=== PATIENT | female | born 1975 | race Caucasian/White ===

== ENCOUNTER 2017-03-08 09:52 | Emergency (ER) | payer OTHER ==
[2017-03-08 09:58] VITALS: BP 147/70; PULSE 97; RESP 20; TEMP 98.3
--- NOTE | 2017-03-08 10:18 | ED ---
Recheck HPI - General Chief Complaint: Recheck/Abnormal Lab/Rx Stated Complaint: back and hip pain Time Seen by Provider: 03/08/17 10:03 Source: patient, RN notes reviewed Mode of arrival: ambulatory Limitations: no limitations - History of Present Illness Initial Comments: 41-year-old female presents emergency Department with chief complaint of chronic pain. Patient states that she has a condition similar to MS. Patient states that she is was an appointment with her neurologist Dr. Chang today though it was canceled. Patient states that she currently takes tramadol. Patient denies any new injuries or traumas but states that she just out of her [place]. - Related Data Home Medications Medication Instructions Recorded Confirmed Amitriptyline HCl [Elavil] 50 mg PO HS 03/19/16 04/15/16 Aspirin 325 mg PO DAILY 03/19/16 04/15/16 Betaserum 1 injection SQ WE 03/19/16 04/15/16 HYDROcodone/APAP 7.5-325MG [[place] 1 tab PO Q4H PRN 03/19/16 04/15/16 7.5-325] Topiramate [Topamax] 50 mg PO BID 03/19/16 04/15/16 buPROPion [Wellbutrin] 100 mg PO TID 03/19/16 04/15/16 Previous Rx's Medication Instructions Recorded traMADol HCL [Ultram] 50 mg PO Q4HR PRN #20 tab 03/19/16 HYDROcodone/APAP 7.5-325MG [[place] 1 tab PO Q6HR PRN #20 tab 04/15/16 7.5-325] HYDROcodone/APAP 7.5-325MG [[place] 1 tab PO Q6HR PRN #10 tab 03/08/17 7.5-325] Allergies Allergy/AdvReac Type Severity Reaction Status Date / Time No Known Allergies Allergy Verified 03/08/17 10:15 Review of Systems ROS Statement: Those systems with pertinent positive or pertinent negative responses have been documented in the HPI. ROS Other: All systems not noted in ROS Statement are negative. Past Medical History Additional Past Medical History / Comment(s): MS, back pain History of Any Multi-Drug Resistant Organisms: None Reported Past Surgical History: Cholecystectomy, Orthopedic Surgery Past Psychological History: Depression Smoking Status: Current every day smoker Past Alcohol Use History: None Reported Past Drug Use History: None Reported General Exam Limitations: no limitations General appearance: alert, in no apparent distress Head exam: Present: atraumatic, normocephalic, normal inspection Respiratory exam: Present: normal lung sounds bilaterally. Absent: respiratory distress, wheezes, rales, rhonchi, stridor Cardiovascular Exam: Present: regular rate, normal rhythm, normal heart sounds. Absent: systolic murmur, diastolic murmur, rubs, gallop, clicks Back exam: Present: full ROM, tenderness Neurological exam: Present: alert, oriented X3, CN II-XII intact Course Vital Signs 03/08/17 09:56 Temperature 98.3 F Pulse Rate 97 Respiratory 20 Rate Blood Pressure 147/70 O2 Sat by Pulse 100 Oximetry Medical Decision Making - Medical Decision Making 41-year-old female presented emergency department for [place] prescription. Patient has neurological condition. I did discuss the case with her neurologist Dr. Jordan who does okay a prescription of 1-2 [place] a day for 5 days. She is to follow-up with him within the next week. He does state that she may be in the hospital periodically for breakthrough pain and which she okays. He did state that she's he does not want her to have a large prescription as she also has depression. Disposition Clinical Impression: Chronic pain, Encounter for medication refill Disposition: HOME SELF-CARE Condition: Stable Instructions: Chronic Pain (ED) Additional Instructions: Please return to the Emergency Department if symptoms worsen or any other concerns. Prescriptions: HYDROcodone/APAP 7.5-325MG [[place] 7.5-325] 1 tab PO Q6HR PRN #10 tab PRN Reason: Pain Time of Disposition: 10:18
== END 2017-03-08 10:22 | disposition home or self-care (01) ==
LOC: EC 09:52
DX: G89.29 Other chronic pain (principal); M25.559 Pain in unspecified hip; M54.9 Dorsalgia, unspecified; F32.9 Major depressive disorder, single episode, unspecified; F17.200 Nicotine dependence, unspecified, uncomplicated; Z76.0 Encounter for issue of repeat prescription; Z79.82 Long term (current) use of aspirin; Z79.899 Other long term (current) drug therapy
CPT/HCPCS: 99283

== ENCOUNTER 2017-07-06 16:16 | Emergency (ER) | payer OTHER ==
[2017-07-06 16:29] VITALS: BP 147/89; RESP 20; TEMP 98
[2017-07-06] MEDS ORDERED: HYDROmorphone 1 MG/ML 1 ML SYRINGE IM STA (16:33)
[2017-07-06] MEDS ORDERED: KETOROLAC 60 MG/2 ML VIAL IM STA (16:33)
--- NOTE | 2017-07-06 16:39 | ED ---
Back Pain [facility] - General Chief Complaint: Back Pain/Injury Stated Complaint: Fall-back pain Time Seen by Provider: 07/06/17 16:29 Source: patient Limitations: no limitations - History of Present Illness Initial Comments: 41-year-old female patient presented to emergency department today for evaluation of low back and right hip pain. Patient states that she slipped and fell when getting out of the shower yesterday, states that she landed on her right side. Patient states that she has had increased low back pain and hip pain since then. Patient states she is able to ambulate, patient states that she is able to lie on her sides however she does have increased pain to her hips and low back when she does this. Patient denies hitting her head or losing consciousness with the fall. Patient states that the pain is in her central low back. Patient states that she has had chronic back and hip pain however the pain is much worse after the fall. She states she does take Ultram and ibuprofen at home for pain control, however is not helping for this pain. She denies any radiation of the pain down her legs. Patient denies any numbness or tingling to her legs. Denies a loss of bowel or bladder control. Denies any saddle anesthesia. Patient denies any headache, neck pain, chest pain , shortness of breath, dizziness, weakness, abdominal pain, nausea, vomiting, or difficulties with bowel movements or urination. - Related Data Home Medications Medication Instructions Recorded Confirmed Amitriptyline HCl [Elavil] 50 mg PO HS 03/19/16 04/15/16 Aspirin 325 mg PO DAILY 03/19/16 04/15/16 Betaserum 1 injection SQ WE 03/19/16 04/15/16 HYDROcodone/APAP 7.5-325MG [[place] 1 tab PO Q4H PRN 03/19/16 04/15/16 7.5-325] Topiramate [Topamax] 50 mg PO BID 03/19/16 04/15/16 buPROPion [Wellbutrin] 100 mg PO TID 03/19/16 04/15/16 Previous Rx's Medication Instructions Recorded traMADol HCL [Ultram] 50 mg PO Q4HR PRN #20 tab 03/19/16 HYDROcodone/APAP 7.5-325MG [[place] 1 tab PO Q6HR PRN #20 tab 04/15/16 7.5-325] HYDROcodone/APAP 7.5-325MG [[place] 1 tab PO Q6HR PRN #10 tab 03/08/17 7.5-325] Cyclobenzaprine [Flexeril] 10 mg PO TID #15 tab 07/06/17 Hydrocodone/Acetaminophen [[place] 1 tab PO Q6HR PRN #15 tab 07/06/17 5-325] Allergies Allergy/AdvReac Type Severity Reaction Status Date / Time No Known Allergies Allergy Verified 07/06/17 16:29 Review of Systems ROS Statement: Those systems with pertinent positive or pertinent negative responses have been documented in the HPI. ROS Other: All systems not noted in ROS Statement are negative. Past Medical History Additional Past Medical History / Comment(s): MS, back pain History of Any Multi-Drug Resistant Organisms: None Reported Past Surgical History: Cholecystectomy, Orthopedic Surgery Past Psychological History: Depression Smoking Status: Current every day smoker Past Alcohol Use History: None Reported Past Drug Use History: None Reported General Exam Limitations: no limitations General appearance: alert, in no apparent distress Eye exam: Present: normal appearance, PERRL, EOMI. Absent: scleral icterus, conjunctival injection, periorbital swelling ENT exam: Present: normal exam, mucous membranes moist Neck exam: Present: normal inspection, full ROM, other (Nontender, no step-off, no deformity to firm midline palpation of the posterior cervical spine. Full range of motion without pain or limitation.). Absent: tenderness, meningismus, lymphadenopathy Respiratory exam: Present: normal lung sounds bilaterally. Absent: respiratory distress, wheezes, rales, rhonchi, stridor Cardiovascular Exam: Present: regular rate, normal rhythm, normal heart sounds. Absent: systolic murmur, diastolic murmur, rubs, gallop, clicks GI/Abdominal exam: Present: soft, normal bowel sounds. Absent: distended, tenderness, guarding, rebound, rigid Extremities exam: Present: normal inspection, full ROM, normal capillary refill , other. Absent: tenderness, pedal edema, joint swelling, calf tenderness Back exam: Present: normal inspection, full ROM, other (No flank ecchymosis. No vertebral tenderness noted. No paraspinal tenderness. No evidence of ecchymosis or skin discoloration to the low back.). Absent: tenderness, CVA tenderness (R), CVA tenderness (L), paraspinal tenderness, vertebral tenderness Neurological exam: Present: alert, oriented X3, CN II-XII intact Psychiatric exam: Present: normal affect, normal mood Skin exam: Present: warm, dry, intact, normal color. Absent: rash Course Vital Signs 07/06/17 16:26 Temperature 98.0 F Pulse Rate 109 H Respiratory 20 Rate Blood Pressure 147/89 O2 Sat by Pulse 99 Oximetry Medical Decision Making - Medical Decision Making 41-year-old female patient presented to emergency department today for evaluation of acute low back pain and right hip pain. Patient states was of a fall yesterday caused worsening of her chronic low back and hip pain. The patient does take tramadol at home. Patient will be given a stronger pain medication for this acute exacerbation, as well as a muscle relaxer. Patient will be discharged and instructed to follow-up with her primary care physician for recheck in 1-2 days. Instructed to return here immediately for any new, worsening, or concerning symptoms. Patient verbalized understanding and agreed with this plan. - Radiology Data Radiology results: report reviewed, image reviewed X-ray of the right hip and AP pelvis shows a pelvic ring is intact. Proximal right femur and hip joints appear intact. There is no sign of hip dysplasia. Sacroiliac joints appear normal. Impression by Dr. Escobedo shows negative pelvis and right hip exam. 5 views of the lumbar spine shows lumbar vertebra have normal. Disc spaces are normal. Posterior elements are intact. Sacroiliac joints appear normal. Impression by Dr. Escobedo shows normal lumbar spine. Disposition Clinical Impression: Acute exacerbation of chronic low back pain, Right hip pain Disposition: HOME SELF-CARE Condition: Good Instructions: Acute Low Back Pain (ED), Hip Pain (ED) Additional Instructions: Rest, apply ice to painful areas. Take pain medications as directed. Follow up with her primary care physician for recheck in 1-2 days. Return immediately for any new, worsening, or concerning symptoms. Prescriptions: Cyclobenzaprine [Flexeril] 10 mg PO TID #15 tab Hydrocodone/Acetaminophen [[place] 5-325] 1 tab PO Q6HR PRN #15 tab PRN Reason: Pain Referrals: None,Stated [Primary Care Provider] - 1-2 days Time of Disposition: 17:20
--- NOTE | 2017-07-06 17:12 | XR ---
EXAMINATION TYPE: XR Hip RT and AP Pelvis DATE OF EXAM: 07/06/2017 COMPARISON: NONE HISTORY: Right hip pain TECHNIQUE: A single AP view of the pelvis is obtained. Two views of the right hip are obtained. FINDINGS: The pelvic ring is intact. Proximal right femur and hip joint appear intact. There is no s ign of hip dysplasia. Sacroiliac joints appear normal. IMPRESSION: Negative pelvis and right hip exam.
--- NOTE | 2017-07-06 17:13 | XR ---
EXAMINATION TYPE: XR lumbosacral spine min 4V DATE OF EXAM: 07/06/2017 COMPARISON: NONE HISTORY: Low back pain TECHNIQUE: 5 views FINDINGS: Lumbar vertebra have normal alignment. Disc spaces are normal. Posterior elements are intac t. Sacroiliac joints appear normal. IMPRESSION: Normal lumbar spine.
[2017-07-06 17:43] VITALS: PULSE 82
== END 2017-07-06 17:25 | disposition home or self-care (01) ==
LOC: EC 16:16
DX: M54.5 Low back pain (principal); M25.551 Pain in right hip; G89.29 Other chronic pain; F32.9 Major depressive disorder, single episode, unspecified; F17.200 Nicotine dependence, unspecified, uncomplicated; Z79.82 Long term (current) use of aspirin; Z79.899 Other long term (current) drug therapy; W01.0XXA Fall on same level from slipping, tripping and stumbling without subsequent striking against object, initial encounter
CPT/HCPCS: 72110; 73502; 99283; 96372 ×2; J1885; J1170

== ENCOUNTER 2017-07-25 16:38 | Emergency (ER) | payer OTHER ==
[2017-07-25 16:59] VITALS: BP 133/71; PULSE 80; RESP 20; TEMP 98.3
[2017-07-25] MEDS ORDERED: ORPHENADRINE 30 MG/ML 2 ML VIAL IM STA (17:28)
[2017-07-25] MEDS ORDERED: KETOROLAC 60 MG/2 ML VIAL IM STA (17:28)
--- NOTE | 2017-07-25 17:28 | ED ---
Back Pain HPI - General Chief Complaint: Back Pain/Injury Stated Complaint: Back Pain Time Seen by Provider: 07/25/17 17:14 Source: patient Limitations: no limitations - History of Present Illness Initial Comments: 41-year-old female patient presented to emergency department today for evaluation of lower back pain and right hip pain. Patient states his pain is chronic for her. She states that she has been out of her Ultram for at least one week. States that her pain is worsening due to this. She states that the pain hasn't changed, symptoms are consistent with her usual pain. She denies any radiation of the pain down her legs. Denies any numbness or tingling. She denies any saddle anesthesia. Denies any loss of bowel or bladder control. She denies any recent injury causing the pain. States that she does have an appointment with her primary care doctor next week. She states when she called his office asking for a refill on her pain medication he asked her if she could wait until her appointment. She states that she thought she could wait however she cannot. He told her to present to the emergency department her pain is too bad. Patient denies any recent fever, chills, shortness breath, chest pain, abdominal pain, nausea, vomiting, diarrhea, constipation, back pain, numbness, tingling, headache, visual changes, hematuria, dysuria, urinary frequency, urinary urgency, or any other complaints. - Related Data Home Medications Medication Instructions Recorded Confirmed Amitriptyline HCl [Elavil] 50 mg PO HS 03/19/16 07/25/17 Aspirin 325 mg PO DAILY 03/19/16 07/25/17 Topiramate [Topamax] 50 mg PO BID 03/19/16 07/25/17 buPROPion [Wellbutrin] 100 mg PO TID 03/19/16 07/25/17 Previous Rx's Medication Instructions Recorded traMADol HCL [Ultram] 50 mg PO Q4HR PRN #20 tab 03/19/16 Allergies Allergy/AdvReac Type Severity Reaction Status Date / Time No Known Allergies Allergy Verified 07/25/17 16:59 Review of Systems ROS Statement: Those systems with pertinent positive or pertinent negative responses have been documented in the HPI. ROS Other: All systems not noted in ROS Statement are negative. Past Medical History Additional Past Medical History / Comment(s): MS, back pain History of Any Multi-Drug Resistant Organisms: None Reported Past Surgical History: Cholecystectomy, Orthopedic Surgery Past Psychological History: Depression Smoking Status: Current every day smoker Past Alcohol Use History: Occasional Past Drug Use History: None Reported General Exam Limitations: no limitations General appearance: alert, in no apparent distress Neck exam: Present: normal inspection. Absent: tenderness, meningismus, lymphadenopathy Respiratory exam: Present: normal lung sounds bilaterally. Absent: respiratory distress, wheezes, rales, rhonchi, stridor Cardiovascular Exam: Present: regular rate, normal rhythm, normal heart sounds. Absent: systolic murmur, diastolic murmur, rubs, gallop, clicks GI/Abdominal exam: Present: soft, normal bowel sounds. Absent: distended, tenderness, guarding, rebound, rigid Extremities exam: Present: normal inspection, full ROM, normal capillary refill , other (Lower extremity strength 5/5. Skin pink, warm, and dry. Cap refill is less than 3 seconds.). Absent: tenderness, pedal edema, joint swelling, calf tenderness Back exam: Present: normal inspection, other (No rash, evidence of infection.). Absent: tenderness Neurological exam: Present: alert, oriented X3, CN II-XII intact Psychiatric exam: Present: normal affect, normal mood Skin exam: Present: warm, dry, intact, normal color. Absent: rash Course Vital Signs 07/25/17 16:57 Temperature 98.3 F Pulse Rate 80 Respiratory 20 Rate Blood Pressure 133/71 O2 Sat by Pulse 98 Oximetry Medical Decision Making - Medical Decision Making 41-year-old female patient presented to emergency department today for evaluation of chronic lower back and right hip pain. Patient states that she is out of her Ultram prescription and her pain is worsening due to this. Physical exam is unremarkable. Neurologic and neurovascular status is intact. Patient was informed that we will be unable to fill her pain medication for her here. She will be given an injection of Toradol and Norflex for acute pain control. She is instructed to follow-up with an parking enforcement specialist for further evaluation of her lower back pain. She is instructed to follow up with her primary care physician for any further prescriptions. She is instructed to return here immediately for any new, worsening, or concerning symptoms. She verbalizes understanding and agrees to this plan. Disposition Clinical Impression: Chronic low back pain, Chronic hip pain Disposition: HOME SELF-CARE Condition: Good Instructions: Chronic Back Pain (ED) Additional Instructions: Follow-up with primary care physician for any further pain medication prescriptions. Follow-up with parking enforcement specialist for further evaluation of a low back pain. They are to Tylenol for pain control. Return here immediately for any new, worsening, or concerning symptoms. Referrals: None,Stated [Primary Care Provider] - 1-2 days Eliecer Talley DO [Doctor of Osteopathic Medicine] - 1-2 days Time of Disposition: 17:28
== END 2017-07-25 18:05 | disposition home or self-care (01) ==
LOC: EC 16:38
DX: G89.29 Other chronic pain (principal); M54.5 Low back pain; M25.551 Pain in right hip; F32.9 Major depressive disorder, single episode, unspecified; F17.200 Nicotine dependence, unspecified, uncomplicated; Z79.82 Long term (current) use of aspirin; Z79.899 Other long term (current) drug therapy
CPT/HCPCS: 99283; 96372 ×2; J2360; J1885

== ENCOUNTER 2018-03-21 13:53 | Emergency (ER) | payer OTHER ==
[2018-03-21 14:08] VITALS: BP 170/80; PULSE 96; RESP 18; TEMP 96.9
--- NOTE | 2018-03-21 15:06 | XR ---
EXAMINATION TYPE: XR wrist complete LT DATE OF EXAM: 03/21/2018 COMPARISON: NONE HISTORY: 42-year-old female pain after fall 2 days ago TECHNIQUE: 4 views FINDINGS: Radiocarpal and distal radioulnar joints as well as the midcarpal compartment appear intact. No acute fracture, subluxation, or dislocation seen. IMPRESSION: No acute osseous abnormality seen.
--- NOTE | 2018-03-21 15:08 | XR ---
Left foot and left ankle HISTORY: Trauma 2 days prior, pain 3 views of the left foot, 3 views of the left ankle are submitted. Bone mineralization, joint spaces and alignment are maintained. There is a plantar heel spur. Mild de generative changes are present. There is soft tissue swelling present. IMPRESSION: No fracture or dislocation of the left foot or ankle.
--- NOTE | 2018-03-21 15:31 | ED ---
Lower Extremity Injury HPI - General Chief Complaint: Extremity Injury, Lower Stated Complaint: fall/wrist & ankle pain Time Seen by Provider: 03/21/18 14:04 Source: patient, RN notes reviewed, old records reviewed Mode of arrival: ambulatory Limitations: no limitations - History of Present Illness Initial Comments: 42-year-old feel presents returns today chief complaint of stepping in a hole in her yard and falling. She reports she rolled her left ankle and fell. She reports she try to cut herself on her left arm. She can lead to rest left wrist pain. She states she's been doing with crutches. Patient states that she has had no other symptoms related well. No head injury. Patient reports that she has never had any previous fractures or sprains.Patient denies any recent fever, chills, shortness of breath, chest pain, back pain, abdominal pain , nausea vomiting, numbness or tingling, dysuria or hematuria, constipation or diarrhea, headaches or visual changes, or any other current symptoms - Related Data Previous Rx's Medication Instructions Recorded Ibuprofen [Motrin] 600 mg PO Q8HR PRN #20 tab 03/21/18 Allergies Allergy/AdvReac Type Severity Reaction Status Date / Time No Known Allergies Allergy Verified 03/21/18 14:23 Review of Systems ROS Statement: Those systems with pertinent positive or pertinent negative responses have been documented in the HPI. ROS Other: All systems not noted in ROS Statement are negative. Past Medical History Past Medical History: No Reported History Additional Past Medical History / Comment(s): MS, back pain History of Any Multi-Drug Resistant Organisms: None Reported Past Surgical History: Cholecystectomy, Orthopedic Surgery Past Psychological History: Depression Smoking Status: Current every day smoker Past Alcohol Use History: Occasional Past Drug Use History: None Reported General Exam - General Exam Comments Initial Comments: well-appearing 42-year-old female. Alert and oriented. No acute distress. Limitations: no limitations General appearance: alert, in no apparent distress Head exam: Present: atraumatic, normocephalic, normal inspection Eye exam: Present: normal appearance, PERRL, EOMI. Absent: scleral icterus, conjunctival injection, periorbital swelling ENT exam: Present: normal exam, mucous membranes moist Neck exam: Present: normal inspection. Absent: tenderness, meningismus, lymphadenopathy Respiratory exam: Present: normal lung sounds bilaterally. Absent: respiratory distress, wheezes, rales, rhonchi, stridor Cardiovascular Exam: Present: regular rate, normal rhythm, normal heart sounds. Absent: systolic murmur, diastolic murmur, rubs, gallop, clicks GI/Abdominal exam: Present: soft, normal bowel sounds. Absent: distended, tenderness, guarding, rebound, rigid Extremities exam: Present: normal inspection, full ROM, normal capillary refill. Absent: tenderness, pedal edema, joint swelling, calf tenderness Left Elbow exam: Present: normal inspection, full ROM Forearm Wrist exam: Present: normal inspection, full ROM, tenderness. Absent: swelling, abrasion, crepitus, dislocation, erythema, tenderness over anatomical snuff box, pain with axial thumb loading Hand Wrist exam: Present: normal inspection, full ROM, tenderness (patient is some minimal tenderness over the distal radius on. No snuffbox tenderness noted.) Neuro motor exam: Present: wrist extension intact, thumb opposition intact, thumb IP flexion intact, thumb adduction intact, fingers 2-5 abduction intact Vascular: Present: normal capillary refill Left Lower Leg exam: Present: normal inspection, full ROM Ankle exam: Present: tenderness, swelling ( is some tenderness and swelling noted over the lateral malleolus.). Absent: normal inspection, full ROM Foot/Toe exam: Present: normal inspection, full ROM Neurovascular tendon exam: Present: no vascular compromise Gait: observed and limited by pain Back exam: Present: normal inspection Neurological exam: Present: alert, oriented X3, CN II-XII intact Psychiatric exam: Present: normal affect, normal mood Course Vital Signs 03/21/18 03/21/18 14:05 15:52 Temperature 96.9 F L 96.9 F L Pulse Rate 96 96 Respiratory 18 18 Rate Blood Pressure 170/80 170/80 O2 Sat by Pulse 96 96 Oximetry Procedures - Orthopedic Splinting/Casting Injury #1 Side: left Lower Extremity Injury Location: ankle Lower Extremity Immobilizer: AirCast, Ubaldo wrap Other Orthopedic Equipment: crutches Medical Decision Making - Medical Decision Making 42-year-old female presents with left wrist and ankle pain after she fell in a hole in her backyard. She does have evidence of a ankle sprain. Swelling and tenderness over the lateral malleolus. Patient x-ray was completed. No fracture. Placed in an Ubaldo wrap and ankle stirrup Aircast. Also given an Ubaldo wrap for her wrist. X-rays the wrist were normal. She has no snuffbox tenderness. Full range of motion noted. At this time I discussed that she needs to rest, ice, elevate extremities. Discussed taking anti-inflammatory medication. All questions answered return parameters were discussed. Discussed orthopedic follow-up if symptoms continue to persist. - Radiology Data Radiology results: report reviewed Ankle and foot x-ray were completed. Noticed any fracture dislocation of the left foot or ankle. Dr. Tapia. Wrist x-ray is negative for any acute process. Read by Dr. Mcdaniel. Disposition Clinical Impression: Left wrist sprain, Left ankle sprain Disposition: HOME SELF-CARE Condition: Good Instructions: Ankle Sprain (ED) Additional Instructions: Advised rest, ice, and elevate the extremity. Continue to ambulate with crutches. Follow-up with orthopedic if symptoms continue to persist. Return to the emergency department if any alarming signs or symptoms occur. Prescriptions: Ibuprofen [Motrin] 600 mg PO Q8HR PRN #20 tab PRN Reason: Pain Is patient prescribed a controlled substance at d/c from ED?: No If prescribed controlled substance>3 days was MAPS reviewed?: No When asked, does pt state using other controlled substances?: No Referrals: None,Stated [Primary Care Provider] - 1-2 days Michael Solares DO [Doctor of Osteopathic Medicine] - 1-2 days Time of Disposition: 15:29
== END 2018-03-21 15:52 | disposition home or self-care (01) ==
LOC: EC 13:53
DX: S93.402A Sprain of unspecified ligament of left ankle, initial encounter (principal); S63.502A Unspecified sprain of left wrist, initial encounter; F17.200 Nicotine dependence, unspecified, uncomplicated; W19.XXXA Unspecified fall, initial encounter; X50.9XXA Other and unspecified overexertion or strenuous movements or postures, initial encounter; Y92.096 Garden or yard of other non-institutional residence as the place of occurrence of the external cause
CPT/HCPCS: 73110; 73610; 73630; 99284; 29515; L4350

== ENCOUNTER → 2019-07-24 | Outpatient (CLI) | payer OTHER ==
--- NOTE | 2019-07-24 15:59 | US ---
EXAMINATION TYPE: US pelvic complete DATE OF EXAM: 07/24/2019 COMPARISON: NONE CLINICAL HISTORY: N92.0 Excessive and frequent menstruation with reg. Pt states heavy menses x many y ears TECHNIQUE: Transabdominal (TA). Transabdominal sonographic images of the pelvis were acquired. Date of LMP: 07/03/2019 EXAM MEASUREMENTS: Uterus: 12.1 x 5.7 x 6.8 cm Endometrial Stripe: 0.8 cm Right Ovary: 4.0 x 3.6 x 3.2 cm Left Ovary: 2.9 x 1.5 x 1.5 cm 1. Uterus: Anteverted Enlarged, Heterogeneous 2. Endometrium: wnl 3. Right Ovary: Cyst= 3.3 x 2.6 x 3.1 cm 4. Left Ovary: wnl 5. Bilateral Adnexa: wnl 6. Posterior cul-de-sac: wnl Transabdominal pelvic ultrasound shows an anteverted uterus, endometrial stripe is felt within normal limits. No free fluid in pelvic cul-de-sac. Both ovaries are seen. There is 3.3 cm simple-appearing thin-walled cyst in the right ovary identified on images saved. IMPRESSION: Simple appearing 3.3 cm thin-walled cyst right ovary.
== END | disposition home or self-care (01) ==
LOC: RADUSWWP 12:36
PROVIDERS: ATTEND Obstetrics & Gynecology
DX: N83.291 Other ovarian cyst, right side (principal)
CPT/HCPCS: 76856

== ENCOUNTER → 2019-08-13 | Outpatient (CLI) | payer OTHER ==
[2019-08-13 14:06] LABS: Anisocytosis Slight; Basophils # (A) 0.1 k/uL (0-0.2); Basophils % (A) 0 %; Eosinophils # (A) 0.2 k/uL (0-0.7); Eosinophils % (A) 1 %; HCT 38.8 % (34.0-46.0); HGB 11.7 gm/dL (11.4-16.0); Hypochromasia Marked; Lymphocytes # (A) 3.6 k/uL (1.0-4.8); Lymphocytes % (A) 31 %; MCH 24.5 pg (25.0-35.0); MCHC 30.1 g/dL (31.0-37.0); MCV 81.4 fL (80.0-100.0); Mean Platelet Volume 5.6; Microcytosis Slight; Monocytes # (A) 0.5 k/uL (0-1.0); Monocytes % (A) 4 %; Neutrophils # (A) 7.1 k/uL (1.3-7.7); Neutrophils % (A) 61 %; Platelet Count 547 k/uL (150-450); RBC 4.77 m/uL (3.80-5.40); RDW 18.3 % (11.5-15.5); WBC 11.5 k/uL (3.8-10.6)
== END | disposition home or self-care (01) ==
LOC: LABPAT 13:36
PROVIDERS: ATTEND Obstetrics & Gynecology
DX: Z01.812 Encounter for preprocedural laboratory examination (principal)
CPT/HCPCS: 36415; 85025

== ENCOUNTER 2019-08-27 06:25 | Day surgery (SDC) | payer OTHER ==
[2019-08-24 09:17] VITALS: BMI 50.6
[~2019-08-27 06:25] MED LIST: DEXAMETHASONE SOD PHOSPHATE 10 MG/ML 1 ML VIAL IV ONE; HYDROmorphone 0.5 MG/0.5 ML SYRINGE IVP PRN; LACTATED RINGERS 1,000 ML IV SCH; LIDOCAINE 1% 20 ML VIAL (10MG/ML) FOR IV START INTRADERMA PRN; ONDANSETRON 4 MG/2 ML VIAL IVP ONE; Pre Op ABX Message 1 EACH MISC MISCELLANE ONE; SCOPOLAMINE 1.5MG/72HR PATCH TRANSDERM ONE
--- NOTE | 2019-08-27 06:52 | P.HPOB ---
History of Present Illness H&P Date: 08/27/19 Chief Complaint: Menorrhagia, cervical dysplasia 43 year old presents for D&C hysteroscopy and endometrial ablation with novasure as well as a colposcopy. Review of Systems All systems: negative Constitutional: Denies chills, Denies fever Eyes: denies blurred vision, denies pain Ears, nose, mouth and throat: Denies headache, Denies sore throat Cardiovascular: Denies chest pain, Denies shortness of breath Respiratory: Denies cough Gastrointestinal: Denies abdominal pain, Denies diarrhea, Denies nausea, Denies vomiting Genitourinary: Denies dysuria, Denies hematuria Musculoskeletal: Denies myalgias Integumentary: Denies pruritus, Denies rash Neurological: Denies numbness, Denies weakness Psychiatric: Denies anxiety, Denies depression Endocrine: Denies fatigue, Denies weight change Past Medical History Past Medical History: No Reported History Additional Past Medical History / Comment(s): patient states was told she had MS, states possible stroke, back pain History of Any Multi-Drug Resistant Organisms: None Reported Past Surgical History: Cholecystectomy, Orthopedic Surgery Additional Past Surgical History / Comment(s): azeb shoulder sx Past Anesthesia/Blood Transfusion Reactions: No Reported Reaction Smoking Status: Current every day smoker - Past Family History Mother Family Medical History: No Reported History Medications and Allergies Home Medications Medication Instructions Recorded Confirmed Type Ibuprofen [Motrin] 600 mg PO Q8HR PRN #20 tab 03/21/18 08/27/19 Rx Gabapentin [Neurontin] 600 mg PO TID PRN 08/24/19 08/27/19 History Allergies Allergy/AdvReac Type Severity Reaction Status Date / Time No Known Allergies Allergy Verified 08/27/19 06:49 Exam Osteopathic Statement: *. No significant issues noted on an osteopathic structural exam other than those noted in the History and Physical/Consult. HEart: RRR Lungs: CTAB Abdomen: soft, nontender Extremeties: neg leola's Assessment and Plan (1) Menorrhagia Current Visit: Yes Status: Acute Code(s): N92.0 - EXCESSIVE AND FREQUENT MENSTRUATION WITH REGULAR CYCLE SNOMED Code(s): 270470340 (2) LGSIL (low grade squamous intraepithelial dysplasia) Current Visit: Yes Status: Acute Code(s): [id number] - SNOMED Code(s): 449687391 Plan: 1. colposcopy 2. D&C hysteroscopy and endometrial ablation with NovaSure
[2019-08-27] MEDS ORDERED: SUCCINYLCHOLINE CHLORIDE VIAL 200 MG/10 ML VIAL IV ONE (07:52)
[2019-08-27] MEDS ORDERED: fentaNYL (PF) 50 MCG/ML 2 ML AMP ONE (07:52)
[2019-08-27] MEDS ORDERED: MIDAZOLAM 2 MG/2 ML VIAL ONE (07:52)
[2019-08-27] MEDS ORDERED: PROPOFOL 10 MG/ML 20 ML VIAL IV ONE (07:52)
[2019-08-27] MEDS ORDERED: LIDOCAINE 1% INJ 10MG/ML (20 ML MDV) ONE (07:52)
[2019-08-27] MEDS ORDERED: KETOROLAC 30 MG/ML 1 ML VIAL ONE (07:52)
--- NOTE | 2019-08-27 07:58 | P.OP ---
Date of Procedure: 08/27/19 Preoperative Diagnosis: 1. Menorrhagia 2. LGSIL Postoperative Diagnosis: 1. Menorrhagia 2. LGSIL Procedure(s) Performed: D&C with hysteroscopy and endometrial ablation with NovaSure, colposcopy Anesthesia: KENYETTA Surgeon: Prerna Salter Estimated Blood Loss (ml): 5 IV fluids (ml): 300 Urine output (ml): 50 Pathology: other (Endocervical curettings, endometrial curettings) Condition: stable Disposition: PACU Operative Findings: With the colposcopy the full transformation zone was seen and there was no acetowhite epithelium or non-iodine staining lesions. With the NovaSure the cavity length was 6.5 cm the width was 4.8 cm, the power was 172 W, the time of ablation was 49 seconds. Adequate ablation noted after NovaSure. Description of Procedure: Patient is taken the operating room where general anesthesia was obtained without difficulty. She was prepped and draped in normal sterile fashion dorsal lithotomy position, [facility] stirrups. Bladder was drained of all urine. Harrison speculum was placed in the vagina. Diluted Acetic acid was placed on the cervix. Colposcopy was performed. Full transformation zone was seen but no acetowhite epithelium was noted. ECC was performed. The bivalve speculum was removed. Weighted speculum placed in the vagina and the anterior lip the cervix was grasped with serial tooth tenaculum. The uterus sounded to 11 cm and the cervix under 3.5 cm making the cavity length 6.5 cm. The cervix was dilated to #8 Hegar dilator. Hysteroscopy was then performed. Both ostia were visualized and there was a smooth contour of the uterus. Sharp curet was then gently used to obtain endometrial curettings. The NovaSure was introduced into the uterus with a cavity length of 6.5 cm, width 4.8 cm. after cavity assessment was passed, the time of ablation was 49 seconds at 172 W. Hysteroscopy was again performed and adequate ablation was noted. All instruments removed from the vagina. Patient tolerated the procedure well, sponge and instrument counts were correct 2 and she was taken to recovery in stable condition.
[2019-08-27] MEDS ORDERED: ACETIC ACID 15 DROPS/ML DROPS MISCELLANE ONE (07:59)
[2019-08-27 08:51] VITALS: TEMP 96.9
[2019-08-27 10:27] VITALS: BP 139/76; PULSE 84; RESP 18
[2019-08-27] MEDS ORDERED: Acetaminophen-Codeine 300-30mg TAB PO ONE (10:27)
== END 2019-08-27 10:48 | disposition home or self-care (01) ==
LOC: OR 06:25
PROVIDERS: ATTEND Obstetrics & Gynecology
DX: N87.9 Dysplasia of cervix uteri, unspecified (principal); N92.0 Excessive and frequent menstruation with regular cycle; G35 Multiple sclerosis; K21.9 Gastro-esophageal reflux disease without esophagitis; F17.200 Nicotine dependence, unspecified, uncomplicated; Z79.1 Long term (current) use of non-steroidal anti-inflammatories (NSAID); Z79.899 Other long term (current) drug therapy; Z90.49 Acquired absence of other specified parts of digestive tract; Z98.890 Other specified postprocedural states
CPT/HCPCS: 81025; 88305; 58563; 57454; J2250; J0330; J1100; J2405; J2001; J3010; J1885; J2704; J1170

== ENCOUNTER 2021-03-04 23:14 | Emergency (ER) | payer OTHER ==
[2021-03-04] MEDS ORDERED: AMPICILLIN-SULBACTAM 3 GM in SODIUM CHLORIDE 0.9% 100 ML IVPB STA (23:19)
[2021-03-04] MEDS ORDERED: LORazepam 2 MG/ML INJ IV STA (23:19)
[2021-03-04] MEDS ORDERED: HYDROmorphone 1 MG/ML 1 ML SYRINGE IVP STA (23:19)
[2021-03-04] MEDS ORDERED: SODIUM CHLORIDE 0.9% 1,000 ML IV STA (23:19)
[2021-03-04] MEDS ORDERED: DIPH,PERTUS(ACELL)TETVAC-LF 0.5 ML VIAL IM ONE (23:20)
[2021-03-04 23:21] VITALS: BP 141/81; PULSE 80; RESP 18; TEMP 98
--- NOTE | 2021-03-04 23:25 | ED ---
Animal Bite HPI - General Source: patient, RN notes reviewed, old records reviewed Mode of arrival: EMS Limitations: no limitations - History of Present Illness MD Complaint: animal bite, other (Dogbite) -: minutes(s) Right: Elbow, Forearm Animal: dog Description: household pet Mechanism: bite Pain Description: sharp, burning, constant Severity scale (1-10): 10 Context: animals fighting Associated Symptoms: bleeding Treatments Prior to Arrival: wound dressing(s) <Tom Martinez - Last Filed: 03/04/21 23:24> <Coy Mclean - Last Filed: 03/05/21 02:19> - General Chief Complaint: Animal Bite Stated Complaint: Dog Bite Time Seen by Provider: 03/04/21 23:21 - History of Present Illness Initial Comments: This is a 45-year-old female DF for evaluation. Patient suffered significant bite wound from own dog. Injury noted to right elbow. Wound is bandaged by fire and patient's brought in by EMS. Patient is no medical history takes no medication may have MS. Patient denying drug or alcohol use tonight (Tom Martinez) - Related Data Home Medications Medication Instructions Recorded Confirmed Gabapentin [Neurontin] 600 mg PO TID PRN 08/24/19 08/27/19 Previous Rx's Medication Instructions Recorded Ibuprofen [Motrin] 600 mg PO Q8HR PRN #20 tab 03/21/18 Acetaminophen-Codeine 300-30mg 1 tab PO Q4H PRN #10 tablet 08/27/19 [Tylenol #3] Ibuprofen [Motrin] 600 mg PO Q6HR PRN #30 tab 08/27/19 Amoxicillin/Potassium Clav 1 tab PO Q12HR #20 tab 03/05/21 [Augmentin 875-125 Tablet] Allergies Allergy/AdvReac Type Severity Reaction Status Date / Time No Known Allergies Allergy Verified 08/27/19 06:49 Review of Systems ROS Other: All systems not noted in ROS Statement are negative. <Tom Martinez - Last Filed: 03/04/21 23:24> ROS Other: All systems not noted in ROS Statement are negative. <Coy Mclean - Last Filed: 03/05/21 02:19> ROS Statement: Those systems with pertinent positive or pertinent negative responses have been documented in the HPI. Past Medical History Past Medical History: No Reported History Additional Past Medical History / Comment(s): MS, back pain History of Any Multi-Drug Resistant Organisms: None Reported Past Surgical History: Cholecystectomy, Orthopedic Surgery Past Psychological History: Depression Smoking Status: Current every day smoker Past Alcohol Use History: Occasional Past Drug Use History: None Reported <Tom Martinez - Last Filed: 03/04/21 23:24> General Exam Limitations: no limitations General appearance: alert, in no apparent distress Head exam: Present: atraumatic, normocephalic, normal inspection Eye exam: Present: normal appearance, PERRL, EOMI. Absent: scleral icterus, conjunctival injection, periorbital swelling ENT exam: Present: normal exam, mucous membranes moist Neck exam: Present: normal inspection. Absent: tenderness, meningismus, lymphadenopathy Respiratory exam: Present: normal lung sounds bilaterally. Absent: respiratory distress, wheezes, rales, rhonchi, stridor Cardiovascular Exam: Present: regular rate, normal rhythm, normal heart sounds. Absent: systolic murmur, diastolic murmur, rubs, gallop, clicks GI/Abdominal exam: Present: soft, normal bowel sounds. Absent: distended, tende rness, guarding, rebound, rigid Extremities exam: Present: normal inspection, full ROM, normal capillary refill. Absent: tenderness, pedal edema, joint swelling, calf tenderness Right Upper Arm exam: Present: tenderness, laceration Elbow exam: Present: tenderness, swelling, laceration, pain w/ pronation/supination. Absent: full ROM Forearm Wrist exam: Present: tenderness, swelling, abrasion, laceration. Absent: full ROM Back exam: Present: normal inspection Neurological exam: Present: alert, oriented X3, CN II-XII intact Psychiatric exam: Present: normal affect, normal mood Skin exam: Present: warm, dry, intact, normal color. Absent: rash <Tom Martinez - Last Filed: 03/04/21 23:24> Course <Tom Martinez - Last Filed: 03/04/21 23:24> Vital Signs 03/04/21 23:15 Temperature 98.0 F Pulse Rate 80 Respiratory 18 Rate Blood Pressure 141/81 - Reevaluation(s) Reevaluation #1: 03/04/21 23:25 Medical records reviewed (Tom Martinez) Procedures - Laceration Laceration #1 Consent Obtained: verbal consent Indication: laceration Site: upper extremity (humerus) Size (cm): 6 Description: irregular Depth: simple, single layer Anesthetic Used: lidocaine 1%, with epi Anesthesia Technique: local infiltration Amount (mls): 7 Pre-repair: wound explored, irrigated extensively (with saline pressure irrigation) Type of Sutures: nylon Size of Sutures: 4-0 Number of Sutures: 4 Technique: simple, interrupted (3), horizontal mattress (1) Patient Tolerated Procedure: well, no complications Laceration #2 Consent Obtained: verbal consent Indication: laceration Site: upper extremity Size (cm): 4 Description: irregular Depth: simple, single layer Anesthetic Used: lidocaine 1%, with epi Anesthesia Technique: local infiltration Amount (mls): 4 Pre-repair: wound explored, irrigated extensively Type of Sutures: nylon Size of Sutures: 4-0 Number of Sutures: 4 Technique: simple, interrupted Patient Tolerated Procedure: well, no complications Laceration #3 Consent Obtained: verbal consent Indication: laceration Site: upper extremity Size (cm): 3 Description: irregular Depth: simple, single layer Anesthetic Used: lidocaine 1%, with epi Anesthesia Technique: local infiltration Amount (mls): 6 Pre-repair: wound explored, irrigated extensively Type of Sutures: nylon Size of Sutures: 4-0 Number of Sutures: 3 Technique: simple, interrupted Patient Tolerated Procedure: well, no complications <Coy Mclean P - Last Filed: 03/05/21 02:19> Medical Decision Making - Lab Data Result diagrams: 03/04/21 23:41 03/04/21 23:41 <Coy Mclean - Last Filed: 03/05/21 02:19> - Medical Decision Making Vitals are stable. CBC BMP unremarkable. X-ray of the right elbow shows medial soft tissue edema and gas. No acute osseous normality. This is likely air from laceration bites. These were repaired loosely to allow for drainage if necessary. Patient was given IV antibiotics in the ear. Patient was started on Augmentin for home. I discussed her to return parameters for infection. (Coy Mclean) - Lab Data Lab Results 03/04/21 03/04/21 03/04/21 Range/Units 23:41 23:41 23:41 WBC 9.9 (3.8-10.6) k/uL RBC 4.68 (3.80-5.40) m/uL Hgb 14.5 (11.4-16.0) gm/dL Hct 44.4 (34.0-46.0) % MCV 94.9 (80.0-100.0) fL MCH 31.1 (25.0-35.0) pg MCHC 32.7 (31.0-37.0) g/dL RDW 13.9 (11.5-15.5) % Plt Count 323 (150-450) k/uL MPV 7.1 Neutrophils % 59 % Lymphocytes % 34 % Monocytes % 3 % Eosinophils % 2 % Basophils % 1 % Neutrophils # 5.9 (1.3-7.7) k/uL Lymphocytes # 3.3 (1.0-4.8) k/uL Monocytes # 0.3 (0-1.0) k/uL Eosinophils # 0.2 (0-0.7) k/uL Basophils # 0.1 (0-0.2) k/uL PT 10.3 (9.0-12.0) sec INR 1.0 (<1.2) APTT 22.0 (22.0-30.0) sec Sodium 139 (137-145) mmol/L Potassium 3.7 (3.5-5.1) mmol/L Chloride 103 (98-107) mmol/L Carbon Dioxide 27 (22-30) mmol/L Anion Gap 9 mmol/L BUN 14 (7-17) mg/dL Creatinine 0.52 (0.52-1.04) mg/dL Est GFR (CKD-EPI)AfAm >90 (>60 ml/min/1.73 sqM) Est GFR (CKD-EPI)NonAf >90 (>60 ml/min/1.73 sqM) Glucose 156 H (74-99) mg/dL Calcium 9.8 (8.4-10.2) mg/dL Phosphorus 4.5 (2.5-4.5) mg/dL Magnesium 1.8 (1.6-2.3) mg/dL Disposition <Tom Martinez - Last Filed: 03/04/21 23:24> Is patient prescribed a controlled substance at d/c from ED?: No Time of Disposition: 02:19 <Coy Mclean P - Last Filed: 03/05/21 02:19> Clinical Impression: Dog bite Disposition: HOME SELF-CARE Condition: Good Instructions (If sedation given, give patient instructions): Animal Bite (ED) Additional Instructions: Please take antibiotic as directed. Monitor for any signs of infection such as spreading or streaking redness, drainage, or fever and return if these occur. Return if you have any other worsening symptoms. Otherwise return in 10 days for suture removal. Follow-up with your doctor for recheck in the next 1-2 days. Prescriptions: Amoxicillin/Potassium Clav [Augmentin 875-125 Tablet] 1 tab PO Q12HR #20 tab Referrals: Sarah Jacome III, MD [STAFF PHYSICIAN] - 1-2 days
[2021-03-04 23:49] LABS: Basophils # (A) 0.1 k/uL (0-0.2); Basophils % (A) 1 %; Eosinophils # (A) 0.2 k/uL (0-0.7); Eosinophils % (A) 2 %; HCT 44.4 % (34.0-46.0); HGB 14.5 gm/dL (11.4-16.0); Lymphocytes # (A) 3.3 k/uL (1.0-4.8); Lymphocytes % (A) 34 %; MCH 31.1 pg (25.0-35.0); MCHC 32.7 g/dL (31.0-37.0); MCV 94.9 fL (80.0-100.0); Mean Platelet Volume 7.1; Monocytes # (A) 0.3 k/uL (0-1.0); Monocytes % (A) 3 %; Neutrophils # (A) 5.9 k/uL (1.3-7.7); Neutrophils % (A) 59 %; Platelet Count 323 k/uL (150-450); RBC 4.68 m/uL (3.80-5.40); RDW 13.9 % (11.5-15.5); WBC 9.9 k/uL (3.8-10.6)
[2021-03-05 00:04] LABS: Prothrombin Time 10.3 sec (9.0-12.0)
[2021-03-05 00:18] LABS: African American GFR (CKD) >90 (>60 ml/min/1.73 sqM); Anion Gap 9 mmol/L; Blood Urea Nitrogen 14 mg/dL (7-17); Calcium 9.8 mg/dL (8.4-10.2); Carbon Dioxide 27 mmol/L (22-30); Chloride 103 mmol/L (98-107); Glucose 156 mg/dL (74-99); Magnesium 1.8 mg/dL (1.6-2.3); Non-African American GFR(CKD) >90 (>60 ml/min/1.73 sqM); Phosphorus 4.5 mg/dL (2.5-4.5); Potassium 3.7 mmol/L (3.5-5.1); Sodium 139 mmol/L (137-145)
--- NOTE | 2021-03-05 00:37 | XR ---
EXAM: XR Right Elbow Complete, 3 or More Views CLINICAL HISTORY: pain TECHNIQUE: Frontal, lateral and oblique views of the right elbow. COMPARISON: No relevant prior studies available. FINDINGS: Bones/joints: No acute fracture or malalignment. Soft tissues: Medial soft tissue edema and gas. No radiopaque foreign body. IMPRESSION: Medial soft tissue edema and gas. No acute osseous abnormality.
[2021-03-05] MEDS ORDERED: LIDOCAINE 1% INJ 10MG/ML (20 ML MDV) SQ ONE (01:51)
== END 2021-03-05 02:38 | disposition home or self-care (01) ==
LOC: EC 23:14 → SUPCPDRO 23:14 → EC 03-05 02:38
DX: S51.011A Laceration without foreign body of right elbow, initial encounter (principal); Z90.49 Acquired absence of other specified parts of digestive tract; F17.200 Nicotine dependence, unspecified, uncomplicated; W54.0XXA Bitten by dog, initial encounter; Z23 Encounter for immunization
CPT/HCPCS: 36415; 80048; 83735; 84100; 85025; 85610; 85730; 73080; 90715; 99283; 12005; 96372; 90471; 96365; 96375 ×2; J2060; J2001; J1170; J0295

== ENCOUNTER → 2022-02-08 | Outpatient (CLI) | payer OTHER ==
[2022-02-08 20:18] LABS: ALT 34 U/L (8-44); AST 27 U/L (13-35); African American GFR (CKD) 127.6 (60.0-200.0); Albumin 4.1 g/dL (3.8-4.9); Albumin/Globulin Ratio 1.28 (1.60-3.17); Alkaline Phosphatase 139 U/L (41-126); Calcium 9.6 mg/dL (8.7-10.3); Chloride 100 mmol/L (96-109); Globulin 3.2 g/dL (1.6-3.3); Glucose 64 mg/dL (70-110); Non-African American GFR(CKD) 110.1 (60.0-200.0); Potassium 3.9 mmol/L (3.5-5.5); Sodium 138 mmol/L (135-145); Total Bilirubin <0.15 mg/dL (0.30-1.20); Total Protein 7.3 g/dL (6.2-8.2)
== END | disposition home or self-care (01) ==
LOC: LABWHC1 13:25
PROVIDERS: ATTEND Nurse Practitioner Family
DX: E11.65 Type 2 diabetes mellitus with hyperglycemia (principal)
CPT/HCPCS: 36415; 80053; 83036

== ENCOUNTER → 2022-06-25 | Outpatient (CLI) | payer OTHER ==
[2022-06-25 14:37] LABS: Basophils # (A) 0.04 X 10*3/uL (0.00-0.10); Basophils % (A) 0.5 %; Eosinophils # (A) 0.19 X 10*3/uL (0.04-0.35); Eosinophils % (A) 2.5 %; HCT 41.1 % (37.2-46.3); HGB 13.4 g/dL (12.0-15.0); Immature Grans, Automated 0.3 %; Lymphocytes # (A) 2.57 X 10*3/uL (0.90-5.00); Lymphocytes % (A) 33.3 %; MCH 30.5 pg (27.0-32.0); MCHC 32.6 g/dL (32.0-37.0); MCV 93.6 fL (80.0-97.0); Mean Platelet Volume 9.6 fL (9.5-12.2); Monocytes # (A) 0.35 X 10*3/uL (0.20-1.00); Monocytes % (A) 4.5 %; NRBC Per 100 WBC 0 /100 WBCS (0.0-0.0); Neutrophils # (A) 4.55 X 10*3/uL (1.80-7.70); Neutrophils % (A) 58.9 %; Platelet Count 358 X 10*3/uL (140-440); RBC 4.39 X 10*6/uL (4.10-5.20); RDW 14.1 % (11.5-14.5); WBC 7.72 X 10*3/uL (4.50-10.00)
[2022-06-25 15:04] LABS: ALT 39 U/L (8-44); AST 28 U/L (13-35); African American GFR (CKD) 121.3 (60.0-200.0); Albumin 4.3 g/dL (3.8-4.9); Albumin/Globulin Ratio 1.39 (1.60-3.17); Alkaline Phosphatase 123 U/L (41-126); BUN/Creat Ratio 20.29 Ratio (12.00-20.00); Blood Urea Nitrogen 14.2 mg/dL (9.0-27.0); Calcium 9.5 mg/dL (8.7-10.3); Carbon Dioxide 25.7 mmol/L (20.0-27.5); Chloride 99 mmol/L (96-109); Globulin 3.1 g/dL (1.6-3.3); Glucose 136 mg/dL (70-110); Non-African American GFR(CKD) 104.6 (60.0-200.0); Potassium 4.1 mmol/L (3.5-5.5); Sodium 138 mmol/L (135-145); Total Protein 7.4 g/dL (6.2-8.2)
[2022-06-25 15:05] LABS: Chol/HDL Ratio 3.36 Ratio; LDL Cholesterol,Calculated 104.8 mg/dL (0.0-131.0); Magnesium 1.9 mg/dL (1.5-2.4); VLDL Calculation 19.48 mg/dL (5.00-40.00)
[2022-06-25 18:41] LABS: Microalbumin Creatinine Ratio <30 mg/g Creat (0-30)
== END | disposition home or self-care (01) ==
LOC: LABWHC1 09:42
PROVIDERS: ATTEND Nurse Practitioner Family
DX: Z11.59 Encounter for screening for other viral diseases (principal); E11.65 Type 2 diabetes mellitus with hyperglycemia; E78.2 Mixed hyperlipidemia; Z79.899 Other long term (current) drug therapy
CPT/HCPCS: 36415; 80053; 80061; 82043; 82306; 82570; 82607; 82746; 83036; 83735; 84443; 85025; 86803